=== PATIENT | male | born 1970 ===

== ENCOUNTER 2017-01-09 23:58 | Emergency (ER) | payer MEDICARE ==
[2017-01-10 00:18] VITALS: RESP 16; TEMP 98.2
[2017-01-10 00:39] LABS: BASO # 0.1 K/uL (0.0-0.2); BASO % 1.3 % (0.0-2.0); EOS # 0.2 K/uL (0.0-0.7); EOS % 2.7 % (0.0-4.0); HEMATOCRIT 49.2 % (35.0-51.0); LYMPH # 1.5 K/uL (1.0-4.3); LYMPH % 25.7 % (20.0-40.0); MEAN CELL VOLUME 90.4 fl (80.0-94.0); MEAN CORPUSCULAR HEMOGLOBIN 30.3 pg (27.0-31.0); MEAN CORPUSCULAR HGB CONC 33.6 g/dL (33.0-37.0); MEAN PLATELET VOLUME 9.9 fl (7.2-11.7); MONO # 0.5 K/uL (0.0-0.8); MONO % 8.1 % (0.0-10.0); NEUT # 3.7 K/uL (1.8-7.0); NEUT % 62.2 % (50.0-75.0); NRBC % 0.2 % (0.0-0.0); RED CELL DISTRIBUTION WIDTH 12.8 % (11.5-14.5); WHITE BLOOD COUNT 5.9 K/uL (4.8-10.8)
[2017-01-10 00:53] LABS: BLOOD UREA NITROGEN 23 mg/dl (9-20); CALCIUM 9.7 mg/dL (8.4-10.2); CARBON DIOXIDE 25 mmol/L (22-30); GFR AFRICAN-AMERICAN > 60; GLUCOSE,RANDOM 145 mg/dL (75-110); POTASSIUM 4.4 MMOL/L (3.6-5.0); SODIUM 136 mmol/l (132-148)
[2017-01-10 00:55] LABS: CHLORIDE 99 mmol/L (98-107)
[2017-01-10 01:03] LABS: PARTIAL THROMBOPLASTIN TIME 31.3 Seconds (25.6-37.1)
--- NOTE | 2017-01-10 01:13 | ED PDOC ---
HPI: Hypertension/Hypotension Time Seen by Provider: 01/10/17 00:20 Chief Complaint (Nursing): Chest Pain Chief Complaint (Provider): High Blood Pressure History Per: Patient History/Exam Limitations: no limitations Onset/Duration Of Symptoms: Other (since earlier today) Current Symptoms Are (Timing): Still Present Associated Symptoms: Dizziness. denies: Chest Pain, Dyspnea Additional Complaint(s): 47 year old male presents to ED with complaints of dizziness since earlier today and has a past medical history of hypotension and hypertension. Family states that they realized his blood pressure was elevated, prompting ED visit. Patient also complains of left shoulder pain that worsens with movement of the arm. (-) chest pain or SOB. Patient denies all other symptoms. PCP: Nubia Sterling Past Medical History Reviewed: Historical Data, Nursing Documentation, Vital Signs Vital Signs: Last Vital Signs Temp 98.2 F 01/10/17 00:16 Pulse 95 H 01/10/17 00:16 Resp 16 01/10/17 00:16 BP 134/94 H 01/10/17 00:16 Pulse Ox 97 01/10/17 00:16 - Medical History PMH: Hyperthyroidism Other PMH: hypotension - Family History Family History: States: No Known Family Hx - Social History Current smoker - smoking cessation education provided: No Ex-Smoker (has not smoked in the last 12 months): No Alcohol: None Drugs: Denies - Home Medications Home Medications: Ambulatory Orders Medication Instructions Recorded Naproxen [Naprosyn] 500 mg PO Q8 #30 tablet 01/10/17 - Allergies Allergies/Adverse Reactions: Allergies Allergy/AdvReac Type Severity Reaction Status Date / Time No Known Allergies Allergy Verified 01/10/17 00:15 Review of Systems ROS Statement: Except As Marked, All Systems Reviewed And Found Negative Cardiovascular: Negative for: Chest Pain Respiratory: Negative for: Shortness of Breath Musculoskeletal: Positive for: Shoulder Pain (left shoulder pain) Neurological: Positive for: Dizziness Physical Exam - Reviewed Nursing Documentation Reviewed: Yes Vital Signs Reviewed: Yes - Physical Exam Appears: Positive for: Non-toxic, No Acute Distress Head Exam: Positive for: ATRAUMATIC, NORMOCEPHALIC Skin: Positive for: Normal Color, Warm, Dry Eye Exam: Positive for: Normal appearance, EOMI, PERRL ENT: Positive for: Normal ENT Inspection Neck: Positive for: Normal, Painless ROM, Supple Cardiovascular/Chest: Positive for: Regular Rate, Rhythm. Negative for: Murmur Respiratory: Positive for: Normal Breath Sounds. Negative for: Respiratory Distress Gastrointestinal/Abdominal: Positive for: Normal Exam, Soft. Negative for: Tenderness Back: Positive for: Normal Inspection Extremity: Negative for: Normal ROM (Near full ROM of LUE. Increased pain on active extensino of the arm), Deformity Neurologic/Psych: Positive for: Alert, Oriented. Negative for: Motor/Sensory Deficits - Laboratory Results Result Diagrams: 01/10/17 00:36 01/10/17 00:36 - ECG O2 Sat by Pulse Oximetry: 97 (RA) Pulse Ox Interpretation: Normal Medical Decision Making Medical Decision Makin Initial impression: unspecific dizziness Initial plan: * EKG * Labs * Trop I * PTT/PT * CXR 0152 Patient notes complete resolution of symptoms and is medically stable for discharge home. Dx: dizziness Scribe Attestation: Documented by Birgit Sheppard acting as a scribe for Mandeep Leone MD. Scribe Attestation: All medical record entries made by the Scribe were at my direction and personally dictated by me. I have reviewed the chart and agree that the record accurately reflects my personal performance of the history, physical exam, medical decision making, and the department course for this patient. I have also personally directed, reviewed, and agree with the discharge instructions and disposition. Disposition - Clinical Impression Clinical Impression: Dizziness Counseled Patient/Family Regarding: Diagnosis - Disposition Referrals: [facility] [Outside] Disposition: Routine/Home Disposition Time: 01:52 Condition: IMPROVED Prescriptions: Naproxen [Naprosyn] 500 mg PO Q8 #30 tablet Instructions: Naproxen (By mouth), Chest Pain (ED), Dizziness (ED) Forms: [employer] (Polish) Print Language: ESTONIAN
[2017-01-10] MEDS ORDERED: Heparin 25,000units in D5W 25,000 UNITS/250 ML BAG IV SCH (01:30)
[2017-01-10 01:49] VITALS: BP 119/85; PULSE 75
[2017-01-10 01:52] VITALS: O2SAT 97
--- NOTE | 2017-01-10 09:08 | CARD ---
APPROVED REPORT EKG Measurement Heart [id number] <Conclusion> Normal sinus rhythm Nonspecific T wave abnormality Abnormal ECG
--- NOTE | 2017-01-10 09:26 | RAD ---
HISTORY: dizziness COMPARISON: No prior. TECHNIQUE: Chest PA and lateral FINDINGS: LUNGS: No active pulmonary disease. PLEURA: No significant pleural effusion identified. No pneumothorax apparent. CARDIOVASCULAR: Normal. OSSEOUS STRUCTURES: No significant abnormalities. VISUALIZED UPPER ABDOMEN: Normal. OTHER FINDINGS: None. IMPRESSION: No active disease.
== END 2017-01-10 02:10 | disposition home or self-care (01) ==
LOC: H.ER 23:58 → EDBD 23:58 → H.ER 01-10 02:10
DX: R42 Dizziness and giddiness (principal)
CPT/HCPCS: 71020; 80048; 84484; 85025; 85610; 85730; 93005; 96374; 99284; J1885